=== PATIENT | male | born 1965 | race African-American/Black ===

== ENCOUNTER 2022-09-29 14:04 | Emergency (ER) | payer SELFPAY ==
[~2022-09-29] VITALS: Ht 180 cm; Wt 95.0 kg
[2022-09-29] MEDS ORDERED: amLODIPine 10 MG (NORVASC) TAB PO STA (14:23)
[2022-09-29 14:33] LABS: BASOPHILS % (AUTO) 0 % (0-10); EOSINOPHILS # (AUTO) 0.3 10^3/uL (0.0-0.3); EOSINOPHILS % (AUTO) 5 % (0-10); HEMATOCRIT 45 % (40-54); HEMOGLOBIN 15.4 g/dL (13.3-17.7); LYMPHOCYTES # (AUTO) 1.8 10^3/uL (1.0-4.0); LYMPHOCYTES % (AUTO) 30 % (12-44); MEAN CORPUSCULAR HEMOGLOBIN 31 pg (25-34); MEAN CORPUSCULAR HGB CONC 34 g/dL (32-36); MEAN CORPUSCULAR VOLUME 91 fL (80-99); MONOCYTES # (AUTO) 0.6 10^3/uL (0.0-1.0); MONOCYTES % (AUTO) 10 % (0-12); NEUTROPHILS # (AUTO) 3.3 10^3/uL (1.8-7.8); NEUTROPHILS % (AUTO) 55 % (42-75); PLATELET COUNT 228 10^3/uL (130-400)
[2022-09-29 14:41] LABS: ALBUMIN 3.9 GM/DL (3.2-4.5); POTASSIUM 4.3 MMOL/L (3.6-5.0)
[2022-09-29 14:42] LABS: CALCIUM 9.1 MG/DL (8.5-10.1)
[2022-09-29 14:43] LABS: TOTAL PROTEIN 6.8 GM/DL (6.4-8.2)
[2022-09-29 14:45] LABS: BILIRUBIN,TOTAL 0.3 MG/DL (0.1-1.0)
--- NOTE | 2022-09-29 14:46 | ED General ---
General Chief Complaint: Cardiac/General Problems Stated Complaint: HIGH BP Nursing Triage Note: ARRIVED VIA AMB TO ROOM 05 WITH COMPLAINTS OF HIGH BP, BLURRED VISION, AND HEADACHE. STATES HE HAS BEEN OUT OF HIS BP MED FOR 4 DAYS. IS IN [place] FOR WORK. History of Present Illness Date Seen by Provider: September 29, 2022 Time Seen by Provider: 14:10 Initial Comments 57-year-old male presents for concerns of hypertension. He states that he has not had his blood pressure and pressure medicine for approximately 1 week. He is on Norvasc 10 mg daily. He reports having headaches and blurry vision intermittently over the last 3 months. 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 He reports calling his primary care to have medication refill but he has not had a return. He denies history of diabetes but was told many years ago that he had chronic kidney disease. He denies taking any other medications at this time. He denies chest pain, shortness of breath, seizures, stroke symptoms or other new complaints. His symptoms wax and wane throughout the day and are not present every day. He does not drink much water, mainly juices and gatorade. Timing/Duration: 3-4 Days Severity: Mild Associated Systoms: No Chest Pain, No Cough, No Headaches, No Loss of Appetite, No Malaise, No Nausea/Vomiting, No Seizure, No Shortness of Air, No Syncope, No Weakness Allergies and Home Medications Allergies Coded Allergies: ibuprofen (Verified Allergy, Severe, ITCHING, 09/29/22) Patient Home Medication List Home Medication List Reviewed: Yes Amlodipine Besylate (Norvasc) 10 Mg Tablet, 10 MG PO DAILY Prescribed by: JONATAN SERVIN on 09/29/22 8936 Review of Systems Review of Systems Constitutional: no symptoms reported, see HPI EENTM: see HPI, blurred vision (intermittently ) Respiratory: no symptoms reported, see HPI Cardiovascular: no symptoms reported, see HPI; No Hx of Intervention Gastrointestinal: no symptoms reported, see HPI Psychiatric/Neurological: See HPI, Headache All Other Systems Reviewed Negative Unless Noted: Yes Past Wxsrzcx-Gncaxm-Mwdjrs Hx Patient Social History Tobacco Use?: No Substance use?: No Alcohol Use?: No Family Medical History Reviewed Nursing Family Hx Physical Exam Vital Signs Vital Signs - First Documented 09/29/22 14:10 Temp 36.3 Pulse 67 Resp 19 B/P (MAP) 151/89 (109) Pulse Ox 97 O2 Delivery Room Air Capillary Refill : Less Than 3 Seconds Height, Weight, BMI Height: '" Weight: lbs. oz. kg; 29.00 BMI Method: General Appearance: No Apparent Distress, WD/WN HEENT: PERRL/EOMI, TMs Normal, Normal ENT Inspection, Pharynx Normal Neck: Full Range of Motion, Normal Inspection, Non Tender, Supple Respiratory: Chest Non Tender, Lungs Clear, Normal Breath Sounds Cardiovascular: Regular Rate, Rhythm, No Edema, No Murmur, Normal Peripheral Pulses Gastrointestinal: Normal Bowel Sounds, Non Tender, Soft Extremity: Normal Capillary Refill, Normal Inspection, Normal Range of Motion, Non Tender, No Pedal Edema Neurologic/Psychiatric: Alert, Oriented x3, No Motor/Sensory Deficits, Normal Mood/Affect, feed adviser II-XII Norm as Tested Skin: Normal Color, Warm/Dry Progress/Results/Core Measures Suspected Sepsis SIRS Temperature: Pulse: 67 Respiratory Rate: 19 Laboratory Tests 09/29/22 14:22: White Blood Count 6.0 Blood Pressure 151 /89 Mean: 109 Laboratory Tests 09/29/22 14:22: Creatinine 1.42H, Platelet Count 228, Total Bilirubin 0.3 Results/Orders Lab Results Laboratory Tests Test 09/29/22 14:22 Range/Units White Blood Count 6.0 4.3-11.0 10^3/uL Red Blood Count 4.95 4.30-5.52 10^6/uL Hemoglobin 15.4 13.3-17.7 g/dL Hematocrit 45 40-54 % Mean Corpuscular Volume 91 80-99 fL Mean Corpuscular Hemoglobin 31 25-34 pg Mean Corpuscular Hemoglobin Concent 34 32-36 g/dL Red Cell Distribution Width 13.5 10.0-14.5 % Platelet Count 228 130-400 10^3/uL Mean Platelet Volume 10.0 9.0-12.2 fL Immature Granulocyte % (Auto) 0 % Neutrophils (%) (Auto) 55 42-75 % Lymphocytes (%) (Auto) 30 12-44 % Monocytes (%) (Auto) 10 0-12 % Eosinophils (%) (Auto) 5 0-10 % Basophils (%) (Auto) 0 0-10 % Neutrophils # (Auto) 3.3 1.8-7.8 10^3/uL Lymphocytes # (Auto) 1.8 1.0-4.0 10^3/uL Monocytes # (Auto) 0.6 0.0-1.0 10^3/uL Eosinophils # (Auto) 0.3 0.0-0.3 10^3/uL Basophils # (Auto) 0.0 0.0-0.1 10^3/uL Immature Granulocyte # (Auto) 0.0 0.0-0.1 10^3/uL Sodium Level 142 135-145 MMOL/L Potassium Level 4.3 3.6-5.0 MMOL/L Chloride Level 108 H 98-107 MMOL/L Carbon Dioxide Level 24 21-32 MMOL/L Anion Gap 10 5-14 MMOL/L Blood Urea Nitrogen 11 7-18 MG/DL Creatinine 1.42 H 0.60-1.30 MG/DL Estimat Glomerular Filtration Rate 58 BUN/Creatinine Ratio 8 Glucose Level 75 70-105 MG/DL Calcium Level 9.1 8.5-10.1 MG/DL Corrected Calcium 9.2 8.5-10.1 MG/DL Total Bilirubin 0.3 0.1-1.0 MG/DL Aspartate Amino Transf (AST/SGOT) 28 5-34 U/L Alanine Aminotransferase (ALT/SGPT) 29 0-55 U/L Alkaline Phosphatase 69 40-136 U/L Total Protein 6.8 6.4-8.2 GM/DL Albumin 3.9 3.2-4.5 GM/DL My Orders Orders - MALATHIJONATAN Goodman Cbc With Automated Diff (09/29/22 14:22) Comprehensive Metabolic Panel (09/29/22 14:22) Amlodipine Tablet (Norvasc Tablet) (09/29/22 14:23) Vital Signs/I&O 09/29/22 09/29/22 14:10 15:19 Temp 36.3 Pulse 67 77 Resp 19 20 B/P (MAP) 151/89 (109) 140/86 Pulse Ox 97 97 O2 Delivery Room Air Room Air Capillary Refill : Less Than 3 Seconds Blood Pressure Mean: 109 Progress Note : Time: 14:10 Progress Note Patient assessed, discussed blood pressures (150s/80s) since presenting to the ER he is not extremely hypertensive at this time. He is unsure what his baseline blood pressure is. Fair effect with his primary care provider, he take s Norvasc 10 mg daily. We will give him this and run some basic labs. He is stable with good VS, we will plan discharge after labs. He denies any other complaints at this time. He is going home this weekend and will plan to see his PCP next week. He would like to know if he is diabetic, explained that we would get a glucose but considering he ate approximately 1 hour ago and had several high carb foods it will not be conclusive. He will need to have fasting lab work with his PCP. 1500 labs essentially normal except a slight elevation in creatinine. Glucose 75. Patient's blood pressure is decreased slightly since the Norvasc. Copy of labs given to patient to take to his PCP in [place]. Discharge instructions and return precautions were reviewed with him. Departure Impression Primary Impression: Hypertension Qualified Codes: I10 - Essential (primary) hypertension Additional Impression: Elevated serum creatinine Disposition: HOME, SELF-CARE Condition: Improved Departure-Patient Inst. Decision time for Depature: 15:10 Referrals: NO,LOCAL PHYSICIAN (PCP/Family) Primary Care Physician Patient Instructions: High Blood Pressure (DC) Add. Discharge Instructions: Continue to take your Norvasc as directed. Follow-up with your primary care provider when you return to [place]. Increase water in your diet. See your eye doctor, for vision changes. Return to the emergency department for new, urgent healthcare needs. All discharge instructions reviewed with patient and/or family. Voiced understanding. Scripts Amlodipine Besylate (Norvasc) 10 Mg Tablet 10 MG PO DAILY, #30 TAB 0 Refills Prov: JONATAN SERVIN 09/29/22 JONATAN SERVIN September 29, 2022 14:46
[2022-09-29 14:47] LABS: CREATININE SERUM 1.42 MG/DL (0.60-1.30)
[2022-09-29] MEDS ORDERED: AMLO10TA4 PO (14:48)
[2022-09-29 15:19] VITALS: BP 140/86
== END 2022-09-29 15:22 | disposition home or self-care (01) ==
LOC: ER 14:06
DX: I10 Essential (primary) hypertension (principal); R79.89 Other specified abnormal findings of blood chemistry
CPT/HCPCS: 36415; 80053; 85025